=== PATIENT | male | born 1985 | race Caucasian/White ===

== ENCOUNTER 2024-07-04 00:05 | Emergency (ER) | payer MEDICAID, OTHER ==
[2024-07-04] MEDS: HYDROmorphone 1 MG/ML Syringe IVPUSH ONE (00:55)
[2024-07-04] MEDS: methylPREDNISolone Sodium Succinate 125 MG/2 ML SDV IVPUSH ONE (00:55)
[2024-07-04] MEDS: Metoclopramide 10 MG/2 ML SDV IVPUSH ONE (00:55)
[2024-07-04] MEDS: Ketorolac 30 MG/ML SDV IVPUSH ONE (00:55)
[2024-07-04] MEDS: Sodium Chloride 0.9% 10 ML Syringe FLUSH PRN (00:56)
== END 2024-07-04 03:58 | disposition home or self-care (01) ==
LOC: JD.ED 00:05
DX: M51.26 Other intervertebral disc displacement, lumbar region (principal); M51.17 Intervertebral disc disorders with radiculopathy, lumbosacral region
CPT/HCPCS: 72131; 96374; 96375; 99283; J1170; J1885; J2765; J2919; J3490; 99284